=== PATIENT | female | born 1955 | race Caucasian/White ===

== ENCOUNTER 2016-11-28 14:00 | Emergency (ER) | payer BC ==
[~2016-11-28 14:00] MED LIST: ALEVE220 MG PO; ATV1 PO; CINNAMONPO; COUMADIN4 MG PO; CYMBALTA60 PO; FLEX PO; LIPITOR10 PO; NEXIUM40 PO; PERCOCET1 TA2 PO; PROZAC40 MG PO
== END 2016-11-28 18:27 | disposition home or self-care (01) ==
LOC: ER 14:00
DX: S13.4XXA Sprain of ligaments of cervical spine, initial encounter (principal); R51 Headache; Z79.01 Long term (current) use of anticoagulants; Z79.899 Other long term (current) drug therapy; W01.0XXA Fall on same level from slipping, tripping and stumbling without subsequent striking against object, initial encounter
CPT/HCPCS: 70450; 72125; 96372; 99284; A9270-GY; J2360